=== PATIENT | male | born 1940 | race Caucasian/White ===

== ENCOUNTER → 2017-04-20 | Outpatient (CLI) | payer MEDICARE, BC ==
[2017-04-20 10:10] LABS: ALT 45 U/L (21-72); AST 22 U/L (17-59); Alkaline Phosphatase 44 U/L (38-126); Anion Gap 8 mmol/L; Blood Urea Nitrogen 18 mg/dL (9-20); Calcium 9.8 mg/dL (8.4-10.2); Carbon Dioxide 30 mmol/L (22-30); Chloride 101 mmol/L (98-107); Cholesterol 180 mg/dL (<200); Glucose 143 mg/dL (74-99); HDL Cholesterol 57 mg/dL (40-60); Non-African American GFR(MDRD) >60 (>60 ml/min/1.73 sqM); Potassium 5.1 mmol/L (3.5-5.1); Sodium 139 mmol/L (137-145); Total Bilirubin 0.5 mg/dL (0.2-1.3); Total Protein 6.8 g/dL (6.3-8.2); Triglycerides 80 mg/dL (<150)
[2017-04-20 16:12] LABS: Urine Creatinine 89.4 mg/dL
== END | disposition home or self-care (01) ==
LOC: LABWHC1 08:59
PROVIDERS: ATTEND Internal Medicine Endocrinology, Diabetes & Metabolism
DX: E11.65 Type 2 diabetes mellitus with hyperglycemia (principal)
CPT/HCPCS: 36415; 80053; 80061; 82043; 82570

== ENCOUNTER → 2018-01-16 | Outpatient (CLI) | payer MEDICARE, BC ==
[2018-01-16 09:10] LABS: ALT 54 U/L (21-72); AST 28 U/L (17-59); Albumin 4.3 g/dL (3.5-5.0); Alkaline Phosphatase 36 U/L (38-126); Anion Gap 13 mmol/L; Blood Urea Nitrogen 19 mg/dL (9-20); Carbon Dioxide 27 mmol/L (22-30); Chloride 99 mmol/L (98-107); Cholesterol 174 mg/dL (<200); Glucose 148 mg/dL (74-99); HDL Cholesterol 53 mg/dL (40-60); LDL Cholesterol,Calculated 104 mg/dL (0-99); Sodium 139 mmol/L (137-145); Total Bilirubin 0.6 mg/dL (0.2-1.3); Total Protein 6.9 g/dL (6.3-8.2); Triglycerides 86 mg/dL (<150)
[2018-01-16 18:41] LABS: Hemoglobin A1C 7.1 % (4.0-6.0)
== END | disposition home or self-care (01) ==
LOC: LABWHC1 07:52
PROVIDERS: ATTEND Internal Medicine Endocrinology, Diabetes & Metabolism
DX: E11.65 Type 2 diabetes mellitus with hyperglycemia (principal)
CPT/HCPCS: 36415; 80053; 80061; 82043; 82570; 83036

== ENCOUNTER → 2018-04-14 | Outpatient (CLI) | payer MEDICARE, BC ==
[2018-04-14 14:34] LABS: Anion Gap 11 mmol/L; Basophils % (A) 1 %; Blood Urea Nitrogen 17 mg/dL (9-20); Calcium 9.6 mg/dL (8.4-10.2); Carbon Dioxide 25 mmol/L (22-30); Chloride 102 mmol/L (98-107); Eosinophils # (A) 0.2 k/uL (0-0.7); Eosinophils % (A) 3 %; Glucose 149 mg/dL (74-99); HCT 43.3 % (39.0-53.0); HGB 14.7 gm/dL (13.0-17.5); Lymphocytes # (A) 1.4 k/uL (1.0-4.8); Lymphocytes % (A) 20 %; MCH 31.6 pg (25.0-35.0); MCHC 33.9 g/dL (31.0-37.0); MCV 93.3 fL (80.0-100.0); Mean Platelet Volume 7.4; Monocytes # (A) 0.5 k/uL (0-1.0); Monocytes % (A) 7 %; Neutrophils # (A) 4.9 k/uL (1.3-7.7); Neutrophils % (A) 68 %; Platelet Count 232 k/uL (150-450); Potassium 4.8 mmol/L (3.5-5.1); RBC 4.64 m/uL (4.30-5.90); RDW 12.7 % (11.5-15.5); Sodium 138 mmol/L (137-145); WBC 7.2 k/uL (3.8-10.6)
== END | disposition home or self-care (01) ==
LOC: LABPAT 13:48
PROVIDERS: ATTEND Urology
DX: Z01.812 Encounter for preprocedural laboratory examination (principal); N40.1 Benign prostatic hyperplasia with lower urinary tract symptoms; E11.9 Type 2 diabetes mellitus without complications; R35.0 Frequency of micturition; R31.29 Other microscopic hematuria
CPT/HCPCS: 36415; 80048; 85025; 87077; 87086; 87186

== ENCOUNTER 2018-04-20 06:59 | Day surgery (SDC) | payer MEDICARE, BC ==
[2018-04-14 11:37] VITALS: BMI 30.3
--- NOTE | 2018-04-16 08:44 | P.GSHP ---
History of Present Illness H&P Date: 04/16/18 Chief Complaint: Urinary retention The patient is a 77-year-old white male with known BPH. He previously failed treatment with Rapaflo. He has been found to empty his bladder incompletely. Cystoscopy reveals trilobar BPH. He was taught to perform intermittent self- catheterization but was unable to do so. He declines treatment with finasteride , and now comes for TURP. 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 PSORIASIS ELBOWS , KNEES. USES CPAP. BPH. History of Any Multi-Drug Resistant Organisms: None Reported Past Surgical History: Appendectomy, Cholecystectomy, Orthopedic Surgery, Tonsillectomy Additional Past Surgical History / Comment(s): LT RING FINGER CYST REMOVED. Past Anesthesia/Blood Transfusion Reactions: No Reported Reaction Smoking Status: Former smoker - Past Family History Mother Family Medical History: No Reported History Medications and Allergies Home Medications Medication Instructions Recorded Confirmed Type Glucosam/Chond/Hyalu/Cf Borate 1 each PO DAILY 04/14/18 04/14/18 History [Move Free Joint Health Tablet] Ibuprofen/Diphenhydramine HCl 1 each PO DAILY PRN 04/14/18 04/14/18 History [Advil Pm Liqui-Gels] Lisinopril [Zestril] 10 mg PO DAILY 04/14/18 04/14/18 History Multivitamins, Thera [Multivitamin 1 tab PO DAILY 04/14/18 04/14/18 History (formulary)] metFORMIN HCL 1,000 mg PO BID 04/14/18 04/14/18 History Allergies Allergy/AdvReac Type Severity Reaction Status Date / Time No Known Allergies Allergy Verified 04/14/18 11:11 Surgical - Exam - General well developed, well nourished, no distress - Neck no masses, trachea midline - Respiratory normal respiratory effort, clear to auscultation - Cardiovascular Rhythm: regular Abnormal Heart Sounds: no systolic murmur, no diastolic murmur, no rub, no S3 Gallop, no S4 Gallop, no click, no other - Abdomen Abdomen: soft, non tender, no guarding, no rigid, no rebound - Genitourinary normal penis with no external lesions, testicles non-tender - Rectum Prostate moderately enlarged and smooth Rectum: normal sphincter tone - Psychiatric oriented to time, oriented to person, oriented to place, speech is normal, memory intact Assessment and Plan (1) Enlarged prostate with lower urinary tract symptoms (LUTS) Status: Acute Code(s): N40.1 - BENIGN PROSTATIC HYPERPLASIA WITH LOWER URINARY TRACT SYMP SNOMED Code(s): 460800548 (2) Urinary retention with incomplete bladder emptying Status: Acute Code(s): R33.9 - RETENTION OF URINE, UNSPECIFIED SNOMED Code(s ): 161148806 Plan: The patient comes for a bipolar TURP. The procedure was reviewed in detail with the patient. Potential risks include anesthesia, bleeding, infection, persistent incomplete bladder emptying, erectile dysfunction, urinary incontinence, development of urethral stricture or vesical neck contracture, persistent lower urinary tract symptoms, and retrograde ejaculation. He also understands the possibility that the resected tissue will show evidence of malignancy, possibly requiring additional treatment.
[~2018-04-20 06:59] MED LIST: AMPICILLIN 2,000 MG in SODIUM CHLORIDE 0.9% 100 ML IVPB ONE; DEXAMETHASONE SOD PHOSPHATE 10 MG/ML 1 ML VIAL IV ONE; GENTAMICIN 120 MG in SODIUM CHLORIDE 0.9% 100 ML IVPB ONE; HYDROmorphone 0.5 MG/0.5 ML SYRINGE IVP PRN; LACTATED RINGERS 1,000 ML IV SCH; ONDANSETRON 4 MG/2 ML VIAL IVP ONE
[2018-04-20] MEDS ORDERED: LIDOCAINE 1% 20 ML VIAL (10MG/ML) FOR IV START INTRADERMA ONE (07:30)
[2018-04-20 07:52] LABS: Glucose,Whole Blood 155 mg/dL (75-99)
[2018-04-20] MEDS ORDERED: fentaNYL (PF) 50 MCG/ML 2 ML AMP ONE (09:02)
[2018-04-20] MEDS ORDERED: LIDOCAINE 1% INJ 10MG/ML (20 ML MDV) ONE (09:02)
[2018-04-20] MEDS ORDERED: NEOSTIGMINE 1 MG/ML 10 ML VIAL ONE (09:02)
[2018-04-20] MEDS ORDERED: VECURONIUM 10 MG VIAL IV ONE (09:02)
[2018-04-20] MEDS ORDERED: PROPOFOL 10 MG/ML 20 ML VIAL IV ONE (09:02)
[2018-04-20] MEDS ORDERED: MIDAZOLAM 2 MG/2 ML VIAL ONE (09:02)
[2018-04-20] MEDS ORDERED: PHENYLEPHRINE-0.9% NACL SYG 1 MG/10 ML SYRINGE ONE (09:02)
[2018-04-20] MEDS ORDERED: SUCCINYLCHOLINE CHLORIDE 100 MG/5 ML SYR IV ONE (09:02)
[2018-04-20] MEDS ORDERED: GLYCOPYRROLATE 0.2 MG/ML 2 ML VIAL ONE (09:02)
--- NOTE | 2018-04-20 12:01 | P.OP ---
Date of Procedure: 04/20/18 Preoperative Diagnosis: Urinary retention secondary to BPH Postoperative Diagnosis: Same Procedure(s) Performed: Cystoscopy, bipolar transurethral resection of prostate (TURP) Anesthesia: YUKO Surgeon: Beto Sequeira Estimated Blood Loss (ml): 100 IV fluids (ml): 600 Pathology: other (prostate chips) Condition: stable Disposition: PACU Indications for Procedure: The patient is a 77-year-old white male with known BPH. He previously failed treatment with Rapaflo. He has been found to empty his bladder incompletely. Cystoscopy reveals trilobar BPH. He was taught to perform intermittent self- catheterization but was unable to do so. He declines treatment with finasteride , and now comes for TURP. Operative Findings: Trilobar BPH Description of Procedure: The patient was taken in the operating room and placed in the dorsolithotomy position, The external genitalia was prepped and draped sterilely. The 25- Thai ACMI resectoscope sheath was introduced into the bladder. The bladder was inspected. Both ureteral orifices were of normal anatomic location and configuration, and clear urine effluxed from both. No tumors or foreign bodies were seen. Examination of the prostate revealed complete obstruction with a trilobar configuration. Using the bipolar cutting loop, the median lobe was resected. Next, each of the lateral lobes were resected down to the surgical capsule. The floor of the prostate was then resected, proximal to the verumontanum. Lastly, any remaining anterior tissue was resected. The prostatic fossa was then carefully examined. The remaining apical tissue was then carefully resected. The resection was carried down to the surgical capsule in all 4 quadrants. The prostatic fossa was then carefully examined, and any areas of bleeding were controlled with electrocautery. Excellent hemostasis was attained. The resectoscope was withdrawn into the bulbous urethra. The external urinary sphincter remained intact. The prostatic fossa was open. The [employer] evacuator was used to remove all prostate chips from the bladder. These were saved and sent for pathologic examination. The resectoscope was removed, and a 22 Thai, 3-Way Youngblood catheter was placed. The return was essentially clear, and the irrigation port was plugged. The patient tolerated the procedure well was taken to the recovery room in stable condition.
[2018-04-20] MEDS ORDERED: BELLADONNA-OPIUM 16.2-60 MG 1 EACH SUPP RECTAL PRN (12:44)
[2018-04-20] MEDS ORDERED: ACETAMINOPHEN TAB 325 MG TAB PO PRN (12:44)
[2018-04-20] MEDS ORDERED: HYDROcodone/APAP 5-325MG 1 EACH TAB PO PRN (12:46)
[2018-04-20 12:53] LABS: Glucose,Whole Blood 188 mg/dL (75-99)
[2018-04-20] MEDS: HYDROcodone/APAP 5-325MG 1 EACH TAB PO PRN ×2 (14:56→18:59)
[2018-04-20] MEDS: DEXTROSE 5%-0.45% NACL 1,000 ML IV SCH (14:57)
[2018-04-20] MEDS: metFORMIN 500 MG TAB PO SCH (17:19)
[2018-04-20] MEDS: SULFAMETHOX-TMP 800-160MG 1 EACH TAB PO SCH (18:58)
[2018-04-20] MEDS: DOCUSATE 100 MG CAP PO SCH (18:59)
[2018-04-20 20:02] LABS: Glucose,Whole Blood 220 mg/dL (75-99)
[2018-04-21] MEDS ORDERED: ceFAZolin IN SWFI 2 GM/20 ML SYRINGE IVP ONE
[2018-04-21] MEDS ORDERED: HYDROcodone/APAP 10-325MG 1 EACH TAB ONE
[2018-04-21] MEDS: DEXTROSE 5%-0.45% NACL 1,000 ML IV SCH (05:10)
[2018-04-21 05:20] VITALS: RESP 16
[2018-04-21 07:04] LABS: Glucose,Whole Blood 184 mg/dL (75-99)
--- NOTE | 2018-04-21 07:50 | P.DS ---
Providers Expected date of discharge: 04/21/18 Attending physician: Beto Sequeira Primary care physician: Blake Fischer - Discharge Diagnosis(es) (1) Enlarged prostate with lower urinary tract symptoms (LUTS) Current Visit: No Status: Acute (2) Urinary retention with incomplete bladder emptying Current Visit: No Status: Acute Hospital Course: On the day of admission, the patient underwent an uncomplicated bipolar TURP. His prostate was considerably enlarged, with a trilobar configuration. There was some evidence of hematuria postoperatively, so the decision was made to keep him hospitalized overnight. However, he did not require catheter irrigation, and on the morning following surgery the urine was clear. He was comfortable and discharged home. Procedures: Cystoscopy, TURP in 04/20/2018. Patient Condition at Discharge: Good Plan - Discharge Summary Discharge Rx Participant: Yes New Discharge Prescriptions: New Cephalexin [Keflex] 500 mg PO Q8HR #21 cap No Action Multivitamins, Thera [Multivitamin (formulary)] 1 tab PO DAILY Glucosam/Chond/Hyalu/Cf Borate [Move Free Joint Health Tablet] 1 each PO DAILY metFORMIN HCL 1,000 mg PO BID Lisinopril [Zestril] 10 mg PO DAILY Ibuprofen/Diphenhydramine HCl [Advil Pm Liqui-Gels] 1 each PO DAILY PRN PRN Reason: PAIN/INSOMNIA Sulfamethox-Tmp 800-160Mg [Bactrim DS 800-160 mg] 1 tab PO Q12HR Discharge Medication List Glucosam/Chond/Hyalu/Cf Borate [Move Free Joint Health Tablet] 1 each PO DAILY 04/14/18 [History] Ibuprofen/Diphenhydramine HCl [Advil Pm Liqui-Gels] 1 each PO DAILY PRN [History] Lisinopril [Zestril] 10 mg PO DAILY 04/14/18 [History] Multivitamins, Thera [Multivitamin (formulary)] 1 tab PO DAILY 04/14/18 [History ] metFORMIN HCL 1,000 mg PO BID 04/14/18 [History] Sulfamethox-Tmp 800-160Mg [Bactrim DS 800-160 mg] 1 tab PO Q12HR 04/19/18 [ History] Cephalexin [Keflex] 500 mg PO Q8HR #21 cap 04/21/18 [Rx] Follow up Appointment(s)/Referral(s): Beto Sequeira MD [STAFF PHYSICIAN] - 04/26/18 Activity/Diet/Wound Care/Special Instructions: Diet as tolerated. No strenuous activity. No straining. Okay to shower. Encourage oral fluids. Patient should discontinue taking Bactrim, and instead take Keflex as prescribed. Hold ibuprofen. Discharge Disposition: HOME SELF-CARE
[2018-04-21] MEDS: metFORMIN 500 MG TAB PO SCH (08:23)
[2018-04-21] MEDS: DOCUSATE 100 MG CAP PO SCH (08:23)
[2018-04-21] MEDS: SULFAMETHOX-TMP 800-160MG 1 EACH TAB PO SCH (08:24)
[2018-04-21 08:56] VITALS: BP 151/78; PULSE 72; TEMP 98.4
[2018-04-21] MEDS ORDERED: LISINOPRIL 10 MG TAB PO SCH (09:00)
== END 2018-04-21 11:42 | disposition home or self-care (01) ==
LOC: OR 06:59 → 3SUR 12:08 → OR 04-21 11:42
PROVIDERS: ATTEND Urology
DX: N40.1 Benign prostatic hyperplasia with lower urinary tract symptoms (principal); N13.8 Other obstructive and reflux uropathy; R33.8 Other retention of urine; I10 Essential (primary) hypertension; E11.9 Type 2 diabetes mellitus without complications; G47.30 Sleep apnea, unspecified; Z99.89 Dependence on other enabling machines and devices; L40.9 Psoriasis, unspecified; Z87.891 Personal history of nicotine dependence; Z79.84 Long term (current) use of oral hypoglycemic drugs; Z79.899 Other long term (current) drug therapy
CPT/HCPCS: 88305; 52601; J2250; J2710; J2001; J3010; J1580; J0290; J2370; J0330; J2704

== ENCOUNTER → 2018-05-01 | Outpatient (CLI) | payer MEDICARE, BC ==
[2018-05-01 11:16] LABS: Albumin 3.6 g/dL (3.5-5.0); Calcium 9.4 mg/dL (8.4-10.2); Potassium 4.5 mmol/L (3.5-5.1); Total Bilirubin 0.6 mg/dL (0.2-1.3); Total Protein 6.1 g/dL (6.3-8.2)
[2018-05-01 19:37] LABS: Hemoglobin A1C 7.7 % (4.0-6.0)
== END | disposition home or self-care (01) ==
LOC: LABWHC1 10:36
PROVIDERS: ATTEND Internal Medicine Endocrinology, Diabetes & Metabolism
DX: E11.65 Type 2 diabetes mellitus with hyperglycemia (principal)
CPT/HCPCS: 36415; 80053; 80061; 83036; 84443

== ENCOUNTER → 2018-08-21 | Outpatient (CLI) | payer MEDICARE, BC ==
[2018-08-21 16:15] LABS: LDL Cholesterol,Calculated 90.6 mg/dL (0.0-131.0); VLDL Calculation 14.4 mg/dL (5.00-40.00)
[2018-08-21 16:16] LABS: Albumin 4.4 g/dL (3.80-4.90); Albumin/Globulin Ratio 2.2 (1.20-2.10); Anion Gap 5.4 mmol/L (4.00-12.00); Calcium 9.5 mg/dL (8.7-10.3); Carbon Dioxide 28.6 mmol/L (21.6-31.8); Potassium 5.1 mmol/L (3.5-5.5); Total Bilirubin 0.4 mg/dL (0.2-1.2); Total Protein 6.4 g/dL (6.2-8.2)
[2018-08-21 21:46] LABS: Hemoglobin A1C 7.9 % (4.0-6.0)
== END | disposition home or self-care (01) ==
LOC: LABWHC1 10:29
PROVIDERS: ATTEND Internal Medicine Endocrinology, Diabetes & Metabolism
DX: E11.65 Type 2 diabetes mellitus with hyperglycemia (principal)
CPT/HCPCS: 36415; 80053; 80061; 82043; 82570; 83036

== ENCOUNTER → 2019-02-06 | Outpatient (CLI) | payer MEDICARE, BC ==
[2019-02-06 19:10] LABS: Albumin 4.4 g/dL (3.80-4.90); Albumin/Globulin Ratio 2.59 (1.60-3.17); Anion Gap 6.8 mmol/L (4.00-12.00); Calcium 9.7 mg/dL (8.7-10.3); Carbon Dioxide 28.2 mmol/L (21.6-31.8); Globulin 1.7 g/dL (1.6-3.3); Potassium 4.7 mmol/L (3.5-5.5); Total Bilirubin 0.6 mg/dL (0.3-1.2); Total Protein 6.1 g/dL (6.2-8.2)
[2019-02-06 19:39] LABS: Hemoglobin A1C 7.5 % (4.0-6.0)
== END | disposition home or self-care (01) ==
LOC: LABWHC1 10:18
PROVIDERS: ATTEND Internal Medicine Endocrinology, Diabetes & Metabolism
DX: E11.65 Type 2 diabetes mellitus with hyperglycemia (principal)
CPT/HCPCS: 36415; 80053; 80061; 82043; 82570; 83036

== ENCOUNTER → 2019-02-09 | Outpatient (CLI) | payer MEDICARE, BC ==
[~2019-02-09] MED LIST changes: -AMPICILLIN 2,000 MG in SODIUM CHLORIDE 0.9% 100 ML IVPB ONE; -DEXAMETHASONE SOD PHOSPHATE 10 MG/ML 1 ML VIAL IV ONE; -GENTAMICIN 120 MG in SODIUM CHLORIDE 0.9% 100 ML IVPB ONE; -HYDROmorphone 0.5 MG/0.5 ML SYRINGE IVP PRN; +IODINE/POTASS IOD (LUGOLS) 8 ML BTL TOPICAL ONE; -LACTATED RINGERS 1,000 ML IV SCH; -ONDANSETRON 4 MG/2 ML VIAL IVP ONE
--- NOTE | 2019-02-09 15:52 | NM ---
EXAMINATION TYPE: NM DatScan Brain SPECT DATE OF EXAM: 02/09/2019 COMPARISON: NONE HISTORY: Tremors TECHNIQUE: 10 drops of Lugol's solution was administered 1 hour prior to injection as a thyroid bloc heber agent. After the administration of 4.5 mCi I-123 Ioflupane DaTscan. Images obtained [address] injection. SPECT images of the brain were acquired with axial and coronal reconstructions. FINDINGS: The axial SPECT images demonstrate increased background activity and reduced activity withi n the bilateral striata. IMPRESSION: Abnormal appearance highly suggestive of idiopathic Parkinson's disease or Parkinsonian s yndrome.
== END | disposition home or self-care (01) ==
LOC: RADNMMAIN 10:23
PROVIDERS: ATTEND Psychiatry & Neurology Neurology
DX: R94.02 Abnormal brain scan (principal)
CPT/HCPCS: 78607; A9584

== ENCOUNTER 2019-07-13 08:30 | Observation (INO) | payer MEDICARE, BC ==
[2019-07-13] MEDS ORDERED: ASPIRIN 81 MG PO STA (08:50)
[2019-07-13] MEDS ORDERED: SODIUM CHLORIDE 0.9% 500 ML 500 ML IV STA (08:53)
[2019-07-13] MEDS ORDERED: SODIUM CHLORIDE 0.9% 1,000 ML IV STA (08:53)
--- NOTE | 2019-07-13 08:53 | ED ---
Chest Pain HPI - General Chief Complaint: Chest Pain Stated Complaint: Chest Pain, SOB Time Seen by Provider: 07/13/19 08:38 Source: patient Mode of arrival: ambulatory Limitations: no limitations - History of Present Illness Initial Comments: This is a 78-year-old male with no prior history of heart or lung disease who does have Parkinson's disease who presents today with complaints of about one week of progressively worsening shortness of breath and chest tightness. He states he is actually had this for about 6 months who used to be able walk 5 m joaquin a day now he can't do that he currently has no tightness in his chest with as how he describes the pain. At rest he feels okay but appears to occur with exertion. No cough fevers chills nausea vomiting sweats or other symptoms. He related to his Parkinson's disease but does not believe this is the case now. No peripheral edema no other modifying factors MD Complaint: chest pain, other - Related Data Home Medications Medication Instructions Recorded Confirmed Glucosam/Chond/Hyalu/Cf Borate 1 tab PO DAILY 04/14/18 07/13/19 [Move Free Joint Health Tablet] Lisinopril [Zestril] 10 mg PO DAILY 04/14/18 07/13/19 Multivitamins, Thera [Multivitamin 1 tab PO DAILY 04/14/18 07/13/19 (formulary)] metFORMIN HCL 1,000 mg PO BID 04/14/18 07/13/19 Aspirin EC [Ecotrin] 325 mg PO DAILY 07/13/19 07/13/19 Carbidopa-Levodopa 10-100 mg 1 tab PO TID 07/13/19 07/13/19 [Sinemet 10-100] Allergies Allergy/AdvReac Type Severity Reaction Status Date / Time No Known Allergies Allergy Verified 07/13/19 08:58 Review of Systems ROS Statement: Those systems with pertinent positive or pertinent negative responses have been documented in the HPI. ROS Other: All systems not noted in ROS Statement are negative. EKG Findings - EKG Results: EKG: interpreted by PETEY, sinus rhythm (Normal sinus rhythm rate 85. 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 PSORIASIS ELBOWS, KNEES. USES CPAP. BPH. History of Any Multi-Drug Resistant Organisms: None Reported Past Surgical History: Appendectomy, Cholecystectomy, Orthopedic Surgery, Tonsillectomy Additional Past Surgical History / Comment(s): LT RING FINGER CYST REMOVED. Past Anesthesia/Blood Transfusion Reactions: No Reported Reaction Past Psychological History: No Psychological Hx Reported Smoking Status: Former smoker Past Alcohol Use History: Occasional Past Drug Use History: None Reported - Past Family History Mother Family Medical History: No Reported History General Exam - General Exam Comments Initial Comments: This is a well-developed well-nourished awake alert oriented 3 male Limitations: no limitations General appearance: alert, in no apparent distress Head exam: Present: atraumatic, normocephalic, normal inspection Eye exam: Present: normal appearance, PERRL, EOMI. Absent: scleral icterus, conjunctival injection, periorbital swelling ENT exam: Present: normal exam, mucous membranes moist Neck exam: Present: normal inspection, full ROM, other (No stridor JVD or bruits). Absent: tenderness, meningismus, lymphadenopathy Respiratory exam: Present: normal lung sounds bilaterally. Absent: respiratory distress, wheezes, rales, rhonchi, stridor Cardiovascular Exam: Present: regular rate, normal rhythm, normal heart sounds. Absent: systolic murmur, diastolic murmur, rubs, gallop, clicks GI/Abdominal exam: Present: soft, normal bowel sounds. Absent: distended, tenderness, guarding, rebound, rigid Extremities exam: Present: normal inspection, full ROM, normal capillary refill. Absent: tenderness, pedal edema, joint swelling, calf tenderness Back exam: Present: normal inspection Neurological exam: Present: alert, oriented X3, CN II-XII intact Psychiatric exam: Present: normal affect, normal mood Skin exam: Present: warm, dry, intact, normal color. Absent: rash Course Vital Signs 07/13/19 07/13/19 08:32 10:57 Temperature 97.9 F Pulse Rate 88 66 Respiratory 20 16 Rate Blood Pressure 201/106 146/81 O2 Sat by Pulse 100 99 Oximetry Chest Pain MDM - MDM I did review the imaging and report no acute findings I did discuss findings with the patient with Dr. Fischer patient will be admitted for evaluation of chest pain. He did have also pain rating to his right jaw he stated later. Disposition Clinical Impression: Unstable angina pectoris, Chest pain Disposition: ADMITTED IP TO THIS HOSP Condition: Fair Referrals: Blake Fischer MD [Primary Care Provider] - 1-2 days
[2019-07-13 09:46] LABS: Basophils % (A) 1 %; Eosinophils # (A) 0.2 k/uL (0-0.7); Eosinophils % (A) 3 %; HCT 43.7 % (39.0-53.0); HGB 15.3 gm/dL (13.0-17.5); Lymphocytes # (A) 1.3 k/uL (1.0-4.8); Lymphocytes % (A) 18 %; MCH 33.2 pg (25.0-35.0); MCHC 35.1 g/dL (31.0-37.0); MCV 94.6 fL (80.0-100.0); Monocytes # (A) 0.4 k/uL (0-1.0); Monocytes % (A) 6 %; Neutrophils # (A) 4.9 k/uL (1.3-7.7); Neutrophils % (A) 70 %; Platelet Count 195 k/uL (150-450); RBC 4.61 m/uL (4.30-5.90); RDW 12.4 % (11.5-15.5)
--- NOTE | 2019-07-13 09:57 | XR ---
EXAMINATION TYPE: XR chest 2V DATE OF EXAM: 07/13/2019 COMPARISON: Chest x-ray February 23, 2010. HISTORY: Shortness of breath and chest pain. TECHNIQUE: Frontal and lateral views of the chest are obtained. FINDINGS: Overlying EKG leads are present. There is no focal air space opacity, pleural effusion, or pneumothorax seen. Stable partial visualization of rounded calcified lesion left upper quadrant maite elates with calcified splenic lesion. The cardiac silhouette size is within normal limits. The osse ous structures are intact. IMPRESSION: No acute cardiopulmonary process. No significant change from prior.
[2019-07-13 10:01] LABS: African American GFR (CKD) >90 (>60 ml/min/1.73 sqM); Albumin 4.4 g/dL (3.5-5.0); Anion Gap 13 mmol/L; Blood Urea Nitrogen 16 mg/dL (9-20); Calcium 9.8 mg/dL (8.4-10.2); Carbon Dioxide 22 mmol/L (22-30); Chloride 101 mmol/L (98-107); Creatine Kinase 56 U/L (55-170); Glucose 219 mg/dL (74-99); Magnesium 1.7 mg/dL (1.6-2.3); Sodium 136 mmol/L (137-145); Total Bilirubin 0.8 mg/dL (0.2-1.3); Total Protein 7.2 g/dL (6.3-8.2)
[2019-07-13 10:10] LABS: ALT 47 U/L (21-72); AST 41 U/L (17-59); Alkaline Phosphatase 35 U/L (38-126); Potassium 4.8 mmol/L (3.5-5.1)
[2019-07-13 11:13] LABS: Partial Thromboplastin Time 23.4 sec (22.0-30.0); Prothrombin Time 10.4 sec (9.0-12.0)
[2019-07-13 11:34] LABS: D-Dimer 0.48 mg/L FEU (<0.60)
[2019-07-13] MEDS ORDERED: NITROGLYCERIN SL TABS 0.4 MG TAB SUBLINGUAL PRN (12:19)
[2019-07-13] MEDS ORDERED: HEPARIN SODIUM,PORCINE 5,000 UNIT/ML 1 ML VIAL IV ONE (12:19)
[2019-07-13] MEDS ORDERED: HEPARIN SOD,PORK IN 0.45% NACL 25,000 UNIT in 0.45% NACL 1 250ML.BAG IV SCH (12:30)
[2019-07-13 14:03] VITALS: BMI 29.0
[2019-07-13] MEDS: CARBIDOPA-LEVODOPA 10-100 MG 1 EACH TAB PO SCH ×2 (16:09→19:31)
[2019-07-13 16:35] LABS: Glucose,Whole Blood 204 mg/dL (75-99)
[2019-07-13] MEDS: metFORMIN 500 MG TAB PO SCH (17:21)
--- NOTE | 2019-07-13 18:23 | P.CRDCN ---
History of Present Illness History of present illness: This is Dr. Cortez dictating a consult on this patient The patient was interviewed and examined by me IMPRESSION / ASSESSMENT: Exertional chest tightness with radiation to the jaw for the last 6 months Progressively getting worse Type 2 diabetes on metformin Hypertension, elevated blood pressure readings in the hospital Lipid panel elevated Parkinson's disease First 2 cardiac enzymes are normal and twelve-lead ECG does not show any ST segment abnormalities PLAN: Lipid panel, TSH Increase lisinopril to 10 mg twice daily Start metoprolol 25 mg twice daily and hold for a heart rate of less than 50 bpm Atorvastatin 40 g by mouth daily Lipid panel Switched to a baby aspirin, not a full aspirin I'll detailed discussion with the patient and I would recommend proceeding with coronary angiography directly The patient understands this and is willing to proceed Heparin will be stopped after 3 cardiac enzymes are normal Clear liquids for breakfast tomorrow HPI Patient presented with progressive symptoms of exertional chest discomfort and tightness that radiated to the jaw with average exertion Shortness of breath with average exertion Symptoms progressively getting worse for the last 6 months His has cancer and so he was taking care of her for all these months No dizziness palpitations no loss of consciousness ROS: No fever chills or rigors, no cough, phlegm or expectoration, no nausea, vomiting or diarrhea, no hematuria, dysuria, no musculoskeletal complaints, no strokes or seizures, no skin lesions. EXAMINATION: Blood pressure 137 of 79 and 178/95 mmHg pulse rate in the 60s afebrile 97.7F Normal respirations No current bruits no JVD Breath sounds are reduced bilaterally with no rhonchi no crackles Normal heart sounds no murmurs or gallops no rub Abdomen is soft nontender Extremities warm no edema REVIEW OF LABS, ECG & MEDICAL DATA hemoglobin 15.3, d-dimer normal him a normal electrolytes Elevated glucose 2 cardiac enzymes are normal Lipid panel pending Twelve-lead ECG shows sinus rhythm normal OK narrow QRS normal ST segments Chest x-ray is within normal limits Medications reviewed and documented in the chart NO KNOWN DRUG ALLERGIES Past history of Parkinson's disease, obstructive sleep apnea, polio as child of her psoriasis, patient uses CPAP mask History of appendectomy cholecystectomy tonsillectomy Past history of smoking Past Medical History Past Medical History: Diabetes Mellitus, Eye Disorder, Hypertension, Musculoskeletal Disorder, Osteoarthritis (OA), Prostate Disorder, Skin Disorder, Sleep Apnea/CPAP/BIPAP Additional Past Medical History / Comment(s): NIDDM type II, neuropathy bilateral feet, parkinson's disease, polio as 6 yr old child, BPH with surgery, psoriasis, psoriatic arthritis, arthritis in multiple joints, chronic low back pain, 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 History of Any Multi-Drug Resistant Organisms: None Reported Past Surgical History: Appendectomy, Cholecystectomy, Orthopedic Surgery, Tonsillectomy Additional Past Surgical History / Comment(s): R carpal tunnel release, L 4th finger cyst removed, bipolar TURP with cystocystoscopy, R eye laser surgery for retinal detachment/hole, colonoscopy Past Anesthesia/Blood Transfusion Reactions: No Reported Reaction Smoking Status: Former smoker - Past Family History Mother Family Medical History: Coronary Artery Disease (CAD), Myocardial Infarction (SD) Additional Family Medical History / Comment(s): Mother of a SD in her upper 70s. Father Family Medical History: Cancer Additional Family Medical History / Comment(s): Father of lymphoma at the age of 94 yrs. Medications and Allergies Home Medications Medication Instructions Recorded Confirmed Type Glucosam/Chond/Hyalu/Cf Borate 1 tab PO DAILY 04/14/18 07/13/19 History [Move Free Joint Health Tablet] Lisinopril [Zestril] 10 mg PO DAILY 04/14/18 07/13/19 History Multivitamins, Thera [Multivitamin 1 tab PO DAILY 04/14/18 07/13/19 History (formulary)] metFORMIN HCL 1,000 mg PO BID 04/14/18 07/13/19 History Aspirin EC [Ecotrin] 325 mg PO DAILY 07/13/19 07/13/19 History Carbidopa-Levodopa 10-100 mg 1 tab PO TID 07/13/19 07/13/19 History [Sinemet 10-100] Allergies Allergy/AdvReac Type Severity Reaction Status Date / Time No Known Allergies Allergy Verified 07/13/19 08:58 Physical Exam Vitals: Vital Signs Temp Pulse Pulse Resp BP BP Pulse Ox 07/13/19 16:00 68 16 07/13/19 14:11 68 16 07/13/19 13:50 97.7 F 68 16 178/95 100 07/13/19 13:06 98.0 F 07/13/19 12:56 62 20 137/79 98 07/13/19 12:32 75 18 140/79 99 07/13/19 10:57 66 16 146/81 99 07/13/19 08:32 97.9 F 88 20 201/106 100 Intake and Output 07/13/19 07/13/19 07/13/19 06:59 14:59 22:59 Intake Total 236 Balance 236 Intake: Oral 236 Other: Voiding Method Toilet Toilet Weight 99.79 kg Results 07/13/19 09:25 07/13/19 09:25 Cardiac Enzymes 07/13/19 07/13/19 07/13/19 Range/Units 09:25 09:25 14:19 AST 41 (17-59) U/L Troponin I <0.012 <0.012 (0.000-0.034) ng/mL Coagulation 07/13/19 Range/Units 09:40 PT 10.4 (9.0-12.0) sec APTT 23.4 (22.0-30.0) sec CBC 07/13/19 Range/Units 09:25 WBC 7.0 (3.8-10.6) k/uL RBC 4.61 (4.30-5.90) m/uL Hgb 15.3 (13.0-17.5) gm/dL Hct 43.7 (39.0-53.0) % Plt Count 195 (150-450) k/uL Comprehensive Metabolic Panel 07/13/19 Range/Units 09:25 Sodium 136 L (137-145) mmol/L Potassium 4.8 (3.5-5.1) mmol/L Chloride 101 (98-107) mmol/L Carbon Dioxide 22 (22-30) mmol/L BUN 16 (9-20) mg/dL Creatinine 0.88 (0.66-1.25) mg/dL Glucose 219 H (74-99) mg/dL Calcium 9.8 (8.4-10.2) mg/dL AST 41 (17-59) U/L ALT 47 (21-72) U/L Alkaline Phosphatase 35 L (38-126) U/L Total Protein 7.2 (6.3-8.2) g/dL Albumin 4.4 (3.5-5.0) g/dL Current Medications Generic Name Dose Route Start Last Admin Trade Name Freq PRN Reason Stop Dose Admin Aspirin 81 mg 07/14/19 09:00 Aspirin PO DAILY COUNT INCLUDES THE [facility] Atorvastatin Calcium 40 mg 07/13/19 21:00 Lipitor PO HS COUNT INCLUDES THE [facility] Carbidopa/Levodopa 1 each 07/13/19 16:00 07/13/19 16:09 Sinemet 10-100 PO 1 each TID SLIME Administration Sodium Chloride 1,000 mls @ 75 mls/hr 07/13/19 08:53 07/13/19 09:02 Saline 0.9% IV 07/13/19 22:12 75 mls/hr .[id number] STA Administration Heparin Sodium/Sodium Chloride 250 mls @ 9.979 mls/hr 07/13/19 12:30 07/13/19 12:55 25,000 unit/ Sodium Chloride IV 10 units/kg/hr .Q24H SLIME 9.979 mls/hr Administration Protocol 10 UNITS/KG/HR Lisinopril 10 mg 07/13/19 21:00 Zestril PO BID COUNT INCLUDES THE [facility] Metformin HCl 1,000 mg 07/13/19 17:30 07/13/19 17:21 Glucophage PO 1,000 mg BID-W/MEALS COUNT INCLUDES THE [facility] Administration Metoprolol Tartrate 25 mg 07/13/19 21:00 Lopressor PO BID COUNT INCLUDES THE [facility] Multivitamins 1 each 07/14/19 09:00 Theragran PO DAILY COUNT INCLUDES THE [facility] Nitroglycerin 0.4 mg 07/13/19 12:19 Nitrostat SUBLINGUAL Q5M PRN Chest Pain Intake and Output 07/13/19 07/13/19 07/13/19 06:59 14:59 22:59 Intake Total 236 Balance 236 Intake: Oral 236 Other: Voiding Method Toilet Toilet Weight 99.79 kg Patient Weight 07/14/19 06:59 Weight 99.79 kg 07/13/19 09:25 07/13/19 09:25
[2019-07-13] MEDS: METOPROLOL TARTRATE 25 MG TAB PO SCH (19:32)
[2019-07-13] MEDS: LISINOPRIL 10 MG TAB PO SCH (19:32)
[2019-07-13 19:50] LABS: Glucose,Whole Blood 119 mg/dL (75-99)
[2019-07-13] MEDS ORDERED: ATORVASTATIN 40 MG TAB PO SCH (21:00)
[2019-07-13] MEDS: MELATONIN 5 MG TABLET PO SCH (23:00)
[2019-07-14 06:33] LABS: Glucose,Whole Blood 163 mg/dL (75-99)
[2019-07-14] MEDS ORDERED: ALPRAZolam 0.5 MG TAB PO PRN (07:15)
[2019-07-14] MEDS ORDERED: ATORVASTATIN 80 MG TAB PO STA (07:15)
[2019-07-14] MEDS ORDERED: NITROGLYCERIN SL TABS 0.4 MG TAB SUBLINGUAL PRN (07:15)
[2019-07-14] MEDS ORDERED: ALPRAZolam 0.25 MG TAB PO PRN (07:15)
[2019-07-14] MEDS ORDERED: ASPIRIN 325 MG TAB PO STA (07:15)
[2019-07-14] MEDS ORDERED: SODIUM CHLORIDE 0.9% 1,000 ML in EMPTY BAG 1 BAG IV ONE (07:15)
--- NOTE | 2019-07-14 07:18 | P.PN ---
Progress Note - Text Progress Note Date: 07/14/19 This is a pleasant 78-year-old gentleman with a past medical history significant for diabetes type 2, hypertension, and dyslipidemia, presented to the hospital with a chest discomfort and subsequently he was admitted to the observational unit. The patient symptoms of chest discomfort are only exertional and concerning for angina and severe underlying coronary artery disease. The patient was seen yesterday by Dr. Cortez who recommended proceeding with a coronary angiogram. On follow-up with him today, he is asymptomatic. The plan is to proceed with coronary angiogram later on today. The procedure in details was explained to the patient.
[2019-07-14] MEDS: LISINOPRIL 10 MG TAB PO SCH ×2 (07:34→20:33)
[2019-07-14] MEDS: MULTIVITAMINS, THERA 1 EACH TAB PO SCH (07:34)
[2019-07-14] MEDS: CARBIDOPA-LEVODOPA 10-100 MG 1 EACH TAB PO SCH ×3 (07:35→20:32)
[2019-07-14] MEDS: METOPROLOL TARTRATE 25 MG TAB PO SCH ×2 (07:35→20:33)
[2019-07-14] MEDS: metFORMIN 500 MG TAB PO SCH (07:35)
[2019-07-14] MEDS ORDERED: LISINOPRIL 10 MG TAB PO SCH (09:00)
[2019-07-14] MEDS ORDERED: ASPIRIN 325 MG TAB PO SCH (09:00)
[2019-07-14] MEDS ORDERED: [UNRECOGNIZED DRUG - REMARK] PO SCH (09:00)
[2019-07-14] MEDS ORDERED: ASPIRIN 81 MG PO SCH (09:00)
[2019-07-14] MEDS ORDERED: NON FORMULARY DRUG (Aspirin Ec 325 MG) PO SCH (09:00)
[2019-07-14] MEDS ORDERED: LIDOCAINE 1% INJ 10MG/ML (20 ML MDV) ONE (09:53)
[2019-07-14] MEDS ORDERED: HEPARIN SODIUM 1,000 UN/ML (10ML VL) ONE (09:54)
[2019-07-14] MEDS ORDERED: VERAPAMIL 2.5 MG/ML 2 ML AMP ONE (09:54)
[2019-07-14] MEDS ORDERED: IV FLUID CONTINUATION 1,000 ML IV ONE (10:09)
[2019-07-14] MEDS ORDERED: MIDAZOLAM 2 MG/2 ML VIAL IVP ONE (10:19)
[2019-07-14] MEDS ORDERED: LIDOCAINE 1% INJ 10MG/ML (20 ML MDV) SQ ONE (10:19)
[2019-07-14] MEDS ORDERED: VERAPAMIL SYRINGE (5 MG/10 ML) INTRAARTER ONE ×2 (10:22→10:38)
[2019-07-14] MEDS ORDERED: HEPARIN SODIUM 1,000 UN/ML (10ML VL) IV ONE (10:25)
[2019-07-14] MEDS ORDERED: IOPAMIDOL-370 125ML BTL INJ ONE (10:38)
[2019-07-14] MEDS ORDERED: RX INFO: IV CONTRAST WAS GIVEN 1 EACH MISC MISCELLANE PRN (10:43)
[2019-07-14] MEDS ORDERED: SODIUM CHLORIDE 0.9% 1,000 ML IV SCH (10:45)
--- NOTE | 2019-07-14 10:48 | P.PCN ---
Date of Procedure: 07/14/19 Operative Findings: CARDIAC CATHETERIZATION PERFORMING PHYSICIAN: Ihsan Spears MD, RPVI PROCEDURE PERFORMED: 1. Selective right and left coronary angiogram 2. Left heart catheterization INDICATION: This is a pleasant 78-year-old gentleman was diabetes, hypertension, dyslipidemia, who presented to the hospital with chest discomfort. His symptoms were quite concerning for severe underlying coronary artery disease. Because of that a heart catheterization was advised. COMPLICATION: None APPROACH: Right radial artery LEVEL OF SEDATION: Moderate with a sedation makes of 20 minutes PROCEDURE DESCRIPTION: After obtaining an informed consent, the patient was brought to cardiac labor operator. Local anesthesia was performed using lidocaine subcutaneously. The right radial artery was cannulated using Seldinger technique, the guidewire passed easily, following that we advanced a 5-Ivorian sheath dilator assembly, the wire and dilator were removed and sheath was flushed. Following that, 2 mg of verapamil along with 32968 unit heparin were given. Selective right and left coronary angiogram using a 6-Ivorian JR4 and JL 3.5 catheters. Following that we did left heart catheterization using 6-Ivorian pigtail catheter. The procedure was completed there was no complication. SELECTIVE CORONARY ANGIOGRAM: The right coronary artery: Is a large caliber vessel and a dominant vessel. The proximal RCA has intermediate lesion in the range of 50%. The mid and distal RCA appears to be angiographically normal. Left main: It is angiographically normal. Bifurcates into LCx and LAD. The left circumflex: Is a large caliber vessel and nondominant vessel. The proximal LCx appeared to be angiographically normal. The mid circumflex is angiographically normal and gives rises into the first obtuse marginal branch which is a large caliber vessel and has disease appears to be in the range of 50-60%. The left circumflex distally appears to be angiographically normal. The left anterior descending artery: It is a large caliber vessel. The proximal LAD appeared to be angiographically normal. The mid LAD appears to be angiographically normal. The LAD distally seems to be normal as well. The LAD in the proximal portion gives rises into a large diagonal branch which has intermediate lesion appeared to be in the range of 50-60%. HEMODYNAMICS: The LVEDP was 12 mmHg without significant gradient across aortic valve CONCLUSION: #1 intermediate triple-vessel coronary artery disease involving the proximal RCA, first obtuse marginal branch, and first diagonal. #2 normal left ventricular end-diastolic pressure POSTPROCEDURE MANAGEMENT: Maximize medical treatment Follow-up with the patient
[2019-07-14 11:27] LABS: Glucose,Whole Blood 188 mg/dL (75-99)
--- NOTE | 2019-07-14 12:55 | P.HPIM ---
History of Present Illness H&P Date: 07/14/19 Chief Complaint: Chest pain with difficulty in breathing Mr. Alicia is a 78-year-old female with a past medical history of diabetes mellitus, hypertension, osteoarthritis, prostate disorder, sleep apnea, Parkinson's disease coming into the hospital with a chief complaint of chest tightness with mild difficulty in breathing. Patient states that he has been having chest discomfort and tightness that is exertional in nature for the past 6 months on and off. But for the past few days it worsen and the pain was radiating to the jaw with mild exertion. Patient was also having mild difficulty in breathing. He neglected all these symptoms for the past 6 months as he was taking care of his who had a cancer. Patient denied having any palpitations. No dizziness or loss of consciousness. Patient has risk factors for coronary artery disease including hypertension and diabetes. Patient has history of smoking smoked from 1949 and quit in 1963. Not a current smoker. Patient denies having any lower extremity swelling. No orthopnea or PND. Patient denies having any cough. No fever chills or rigors. No abdominal pain nausea vomiting or diarrhea. No dysuria or hematuria. Patient denies having any headaches blurring of vision or slurred speech. No weakness of his extremities. On reviewing the labs patient had troponin that was less than 0.012. He was evaluated by cardiology yesterday and patient had a left heart catheterization done this morning- showing intermediate triple vessel coronary artery disease involving the proximal RCA, first up to use marginal branch and first diagonal branch. Left ventricle end-diastolic pressure within normal li mits. So the patient is to be managed with medical treatment. Review of Systems REVIEW OF SYSTEMS: PSYCH: No anxiety or depression NEURO:No c/o weakness of the extremties, No facial droop, No speech abnormalities. VASCULAR: Peripheral nervous system within the normal limits no edema HEMATOLOGIC: No history of easy bleeding and bruising . No recent infections . RESPIRATORY: No cough, No SOB, No chest discomfort. IMMUNE: No infections INTEGUMENT: no rashes OPHTHALMOLOGIC: No blurry vision and no eye discharge : No dysuria or hematuria CARDIAC: As per HPI MUSCULOSKELETAL : No Aches or pains in the joints or muscles. GI: No abdominal pain, Nausea or vomiting. No constipation or diarrhea. All 13 review of systems are negative except for the ones mentioned above. 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 History of Any Multi-Drug Resistant Organisms: None Reported Past Surgical History: Appendectomy, Cholecystectomy, Orthopedic Surgery, Tonsillectomy Additional Past Surgical History / Comment(s): R carpal tunnel release, L 4th finger cyst removed, bipolar TURP with cystocystoscopy, R eye laser surgery for retinal detachment/hole, colonoscopy Past Anesthesia/Blood Transfusion Reactions: No Reported Reaction Smoking Status: Former smoker - Past Family History Mother Family Medical History: Coronary Artery Disease (CAD), Myocardial Infarction (OK) Additional Family Medical History / Comment(s): Mother of a OK in her upper 70s. Father Family Medical History: Cancer Additional Family Medical History / Comment(s): Father of lymphoma at the age of 94 yrs. Medications and Allergies Home Medications Medication Instructions Recorded Confirmed Type Glucosam/Chond/Hyalu/Cf Borate 1 tab PO DAILY 04/14/18 07/13/19 History [Move Free Joint Health Tablet] Lisinopril [Zestril] 10 mg PO DAILY 04/14/18 07/13/19 History Multivitamins, Thera [Multivitamin 1 tab PO DAILY 04/14/18 07/13/19 History (formulary)] metFORMIN HCL 1,000 mg PO BID 04/14/18 07/13/19 History Aspirin EC [Ecotrin] 325 mg PO DAILY 07/13/19 07/13/19 History Carbidopa-Levodopa 10-100 mg 1 tab PO TID 07/13/19 07/13/19 History [Sinemet 10-100] Allergies Allergy/AdvReac Type Severity Reaction Status Date / Time No Known Allergies Allergy Verified 07/13/19 08:58 Physical Exam Vitals: Vital Signs Temp Pulse Pulse Resp BP BP Pulse Ox 07/14/19 08:00 77 14 07/14/19 07:32 97.6 F 77 14 154/83 97 07/14/19 07:09 97 07/14/19 04:30 64 16 07/14/19 04:00 97.9 F 64 16 131/80 97 07/13/19 23:26 62 15 07/13/19 23:25 97.9 F 62 15 133/80 97 07/13/19 19:54 75 15 07/13/19 19:31 97.9 F 75 15 148/74 98 07/13/19 16:00 68 16 07/13/19 14:11 68 16 07/13/19 13:50 97.7 F 68 16 178/95 100 07/13/19 13:06 98.0 F 07/13/19 12:56 62 20 137/79 98 07/13/19 12:32 75 18 140/79 99 Intake and Output 07/13/19 07/14/19 07/14/19 22:59 06:59 14:59 Intake Total 326.643 0 340 Balance 326.643 0 340 Intake: Intake, IV Titration 90.643 Amount Heparin Sod,Pork in 0.45% 90.643 NaCl 25,000 unit In 0.45 % NaCl 1 250ml.bag @ 10 UNITS/KG/HR 9.979 mls/hr IV .Q24H SLIME Rx#: [id number] Oral 236 0 340 Other: Voiding Method Toilet Toilet Toilet # Voids 1 1 GEN. APPEARANCE: alert, in no apparent distress HEAD EXAM: atraumatic, normocephalic, normal inspection EYE EXAM: No pallor. No icterus. RESPIRATORY EXAM: Bilateral breath sounds are positive. No wheeze or crackles. CARDIOVASCULAR EXAM: S1 and S2 heard. No additional sounds. GI/ABDOMINAL EXAM: soft, normal bowel sounds. Absent: distended, tenderness, guarding, rebound, rigid EXTREMITIES EXAM: No edema. NEUROLOGICAL EXAM: alert, oriented X3, no focal neurological deficits on gross exam. PSYCHIATRIC EXAM: normal affect, normal mood SKIN EXAM: warm, dry, intact, normal color. Absent: rash Results CBC & Chem 7: 07/13/19 09:25 07/13/19 09:25 Labs: Abnormal Lab Results - Last 24 Hours (Table) 07/13/19 07/13/19 07/13/19 Range/Units 16:33 19:49 20:13 APTT 30.1 H (22.0-30.0) sec POC Glucose (mg/dL) 204 H 119 H (75-99) mg/dL HDL Cholesterol (40-60) mg/dL 07/14/19 07/14/19 07/14/19 Range/Units 03:32 03:32 06:31 APTT 42.6 H (22.0-30.0) sec POC Glucose (mg/dL) 163 H (75-99) mg/dL HDL Cholesterol 36 L (40-60) mg/dL 07/14/19 Range/Units 11:25 APTT (22.0-30.0) sec POC Glucose (mg/dL) 188 H (75-99) mg/dL HDL Cholesterol (40-60) mg/dL Thrombosis Risk Factor Assmnt - Choose All That Apply Any of the Below Risk Factors Present?: Yes Each Factor Represents 1 point: Obesity (BMI >25) Other Risk Factors: Yes Each Risk Factor Represents 3 Points: Age 75 years or older Other congenital or acquired thrombophilia - If yes, enter type in comment: No Thrombosis Risk Factor Assessment Total Risk Factor Score: 4 Thrombosis Risk Factor Assessment Level: Moderate Risk Assessment and Plan Assessment: ASSESSMENT Exertional chest pain Type 2 diabetes mellitus Hypertension Hyperlipidemia Parkinson's disease Prostrated disorder Obstructive sleep apnea on CPAP Psoriatic arthritis in multiple joints Chronic low back pain PLAN: Patient had a cardiac cath done this morning showing intermittent triple v essel disease. No stents were put in. Suggested to maximize medical management. Patient has been started on beta rich and Imdur. His dose of lisinopril has also been increased from 10 mg to 20 mg. Patient is also started on aspirin and statin. The results of the cardiac cath were discussed in detail with the patient and his son at bedside today. Further recommendations depending on the progress of the patient.
[2019-07-14 16:30] LABS: Glucose,Whole Blood 139 mg/dL (75-99)
[2019-07-14] MEDS: MELATONIN 5 MG TABLET PO SCH (20:33)
[2019-07-14 20:34] LABS: Glucose,Whole Blood 139 mg/dL (75-99)
[2019-07-15 06:17] LABS: Glucose,Whole Blood 155 mg/dL (75-99)
[2019-07-15] MEDS: LISINOPRIL 10 MG TAB PO SCH ×2 (08:52→14:54)
[2019-07-15] MEDS: MULTIVITAMINS, THERA 1 EACH TAB PO SCH (08:52)
[2019-07-15] MEDS: CARBIDOPA-LEVODOPA 10-100 MG 1 EACH TAB PO SCH (08:52)
[2019-07-15] MEDS: METOPROLOL TARTRATE 25 MG TAB PO SCH ×2 (08:52→14:54)
[2019-07-15] MEDS ORDERED: ASPIRIN 81 MG PO SCH (09:00)
[2019-07-15] MEDS ORDERED: ISOSORBIDE MONONITRATE ER 30 MG TAB.ER.24H PO SCH (09:00)
--- NOTE | 2019-07-15 10:32 | P.PN ---
Subjective Progress Note Date: 07/15/19 Principal diagnosis: Chest pain This is a pleasant 78-year-old gentleman with history of diabetes, hypertension, dyslipidemia, presented to the hospital with chest discomfort with exertion concerning for severe underlying coronary artery disease. He underwent a heart catheterization which revealed intermedius triple-vessel coronary artery disease. Maximize medical treatment was advised. We added oral nitrates to his current medical regimen. On follow-up with him today, 07/15/2019, the patient stated that he has been chest pain-free. The right radial artery site is soft and nontender and without any bruises. From the cardiovascular standpoint of view, the patient can be discharged home. Objective - Vital Signs Vital signs: Vital Signs Temp 97 F L 07/15/19 04:00 Pulse 60 07/15/19 04:00 Resp 16 07/15/19 04:00 BP 150/72 07/15/19 04:00 Pulse Ox 96 07/15/19 04:00 Intake & Output 07/14/19 07/15/19 07/15/19 18:59 06:59 18:59 Intake Total 340 420 750 Balance 340 420 750 Weight 100.1 kg Intake: Oral 340 420 750 Other: Voiding Method Toilet # Voids 2 - Constitutional General appearance: Present: no acute distress - Respiratory Respiratory: bilateral: CTA - Cardiovascular Rhythm: regular Heart sounds: normal: S1, S2 - Labs CBC & Chem 7: 07/13/19 09:25 07/13/19 09:25 Labs: Abnormal Lab Results - Last 24 Hours (Table) 07/14/19 07/14/19 07/14/19 Range/Units 11:25 16:28 20:31 POC Glucose (mg/dL) 188 H 139 H 139 H (75-99) mg/dL 07/15/19 Range/Units 06:16 POC Glucose (mg/dL) 155 H (75-99) mg/dL Assessment and Plan Assessment: Assessment #1 intermedius triple-vessel CAD #2 chest discomfort which has resolved #3 hypertension #4 diabetes next #5 dyslipidemia Plan #1 continue the current medical regimen #2 continue oral nitrate He #3 the patient can be discharged home
[2019-07-15 10:49] VITALS: PULSE 66; RESP 18
[2019-07-15 11:52] LABS: Glucose,Whole Blood 213 mg/dL (75-99)
[2019-07-15 13:06] VITALS: BP 149/73; TEMP 97.4
--- NOTE | 2019-07-15 14:36 | P.DS ---
Providers Date of admission: 07/13/19 12:19 Expected date of discharge: 07/15/19 Attending physician: Blake Fischer Consults: 07/13/19 12:19 Consult Physician Urgent Consulting Provider: Nicol Osborne Consult Reason/Comments: Chest pain Do you want consulting provider notified?: Yes Primary care physician: Blake Fischer [facility] Course: Mr. Alicia is a 78-year-old female with a past medical history of diabetes mellitus, hypertension, osteoarthritis, prostate disorder, sleep apnea, Parkinson's disease coming into the hospital with a chief complaint of chest tightness with mild difficulty in breathing. Patient states that he has been having chest discomfort and tightness that is exertional in nature for the past 6 months on and off. But for the past few days it worsen and the pain was radiating to the jaw with mild exertion. Patient was also having mild difficulty in breathing. He neglected all these symptoms for the past 6 months as he was taking care of his who had a cancer. Patient denied having any palpitations. No dizziness or loss of consciousness. Patient has risk factors for coronary artery disease including hypertension and diabetes. Patient has history of smoking smoked from 1949 and quit in 1963. Not a current smoker. Patient denies having any lower extremity swelling. No orthopnea or PND. Patient denies having any cough. No fever chills or rigors. No abdominal pain nausea vomiting or diarrhea. No dysuria or hematuria. Patient denies having any headaches blurring of vision or slurred speech. No weakness of his extremities. On reviewing the labs patient had troponin that was less than 0.012. He was evaluated by cardiology and patient had a left heart catheterization done - showing intermediate triple vessel coronary artery disease involving the proximal RCA, first up to use marginal branch and first diagonal branch. Left ventricle end-diastolic pressure within normal limits. So the patient is to be managed with medical treatment. So the patient has been started on beta rich, statin, and her and the dose of lisinopril was increased to twice a day dose. The patient was monitored for 24 hours after having the cardiac cath and was doing fine. He has been cleared by cardiology to be discharged home. She'll the patient is being sent home. He started to have a follow-up with his primary care physician Dr. Fischer in 3-4 days. Vital Signs 07/15/19 07/15/19 08:35 11:50 Temperature 97.6 F 97.4 F L Pulse Rate [ 66 66 Pulse Oximetery ] Respiratory 18 18 Rate Blood Pressure 162/96 149/73 [Left Arm Sitting] Blood Pressure 190/106 [Left Arm] O2 Sat by Pulse 96 96 Oximetry GEN. APPEARANCE: alert, in no apparent distress HEAD EXAM: atraumatic, normocephalic, normal inspection EYE EXAM: No pallor. No icterus. RESPIRATORY EXAM: Bilateral breath sounds are positive. No wheeze or crackles. CARDIOVASCULAR EXAM: S1 and S2 heard. No additional sounds. GI/ABDOMINAL EXAM: soft, normal bowel sounds. Absent: distended, tenderness, guarding, rebound, rigid EXTREMITIES EXAM: No edema. NEUROLOGICAL EXAM: alert, oriented X3, no focal neurological deficits on gross exam. PSYCHIATRIC EXAM: normal affect, normal mood SKIN EXAM: warm, dry, intact, normal color. Absent: rash DISCHARGE DIAGNOSIS Exertional chest pain Type 2 diabetes mellitus Hypertension Hyperlipidemia Parkinson's disease Prostrated disorder Obstructive sleep apnea on CPAP Psoriatic arthritis in multiple joints Chronic low back pain PLAN : Patient had a cardiac cath done showing intermittent triple vessel disease. No stents were put in. Suggested to maximize medical management. Patient has been started on beta rich and Imdur. His dose of lisinopril has also been increased from 10 mg to 20 mg. Patient is also started on statin. Discussed in detail the discharge medications with the patient and his son in detail today. Follow-up: Advised to follow-up with his primary care physician Dr. Fischer in 3- 4 days. Patient Condition at Discharge: Fair Plan - Discharge Summary Discharge Rx Participant: No New Discharge Prescriptions: New Isosorbide Mononitrate ER [Imdur] 30 mg PO DAILY 30 Days tab.er.24h Atorvastatin [Lipitor] 40 mg PO HS 30 Days #30 tab Metoprolol Tartrate [Lopressor] 25 mg PO BID 30 Days tab Nitroglycerin Sl Tabs [Nitrostat] 0.4 mg SUBLINGUAL Q5M PRN #20 tab PRN Reason: Chest Pain Lisinopril [Zestril] 10 mg PO BID 30 Days tab Continue Multivitamins, Thera [Multivitamin (formulary)] 1 tab PO DAILY Glucosam/Chond/Hyalu/Cf Borate [Move Free Joint Health Tablet] 1 tab PO DAILY metFORMIN HCL 1,000 mg PO BID Aspirin EC [Ecotrin] 325 mg PO DAILY Carbidopa-Levodopa 10-100 mg [Sinemet 10-100 mg] 1 tab PO TID Discontinued Lisinopril [Zestril] 10 mg PO DAILY Discharge Medication List Glucosam/Chond/Hyalu/Cf Borate [Move Free Joint Health Tablet] 1 tab PO DAILY 04/14/18 [History] Multivitamins, Thera [Multivitamin (formulary)] 1 tab PO DAILY 04/14/18 [History] metFORMIN HCL 1,000 mg PO BID 04/14/18 [History] Aspirin EC [Ecotrin] 325 mg PO DAILY 07/13/19 [History] Carbidopa-Levodopa 10-100 mg [Sinemet 10-100 mg] 1 tab PO TID 07/13/19 [History] Atorvastatin [Lipitor] 40 mg PO HS 30 Days #30 tab 07/15/19 [Rx] Isosorbide Mononitrate ER [Imdur] 30 mg PO DAILY 30 Days tab.er.24h 07/15/19 [Rx] Lisinopril [Zestril] 10 mg PO BID 30 Days tab 07/15/19 [Rx] Metoprolol Tartrate [Lopressor] 25 mg PO BID 30 Days tab 07/15/19 [Rx] Nitroglycerin Sl Tabs [Nitrostat] 0.4 mg SUBLINGUAL Q5M PRN #20 tab 07/15/19 [Rx] Follow up Appointment(s)/Referral(s): Jin Cortez MD [STAFF PHYSICIAN] - 1 Week Blake Fischer MD [Primary Care Provider] - 1-2 days Discharge Disposition: HOME SELF-CARE
[2019-07-15] MEDS ORDERED: ATORVASTATIN 40 MG TAB PO SCH (21:00)
[2019-07-16] MEDS ORDERED: metFORMIN 500 MG TAB PO SCH (17:30)
== END 2019-07-15 15:09 | disposition home or self-care (01) ==
LOC: EC 08:30 → 1SOBS 12:19 → 3SCARD 07-14 17:18
PROVIDERS: ADMIT Family Medicine; ATTEND Family Medicine
DX: R07.89 Other chest pain (principal); I25.10 Atherosclerotic heart disease of native coronary artery without angina pectoris; G20 Parkinson's disease; E78.5 Hyperlipidemia, unspecified; E11.65 Type 2 diabetes mellitus with hyperglycemia; I10 Essential (primary) hypertension; E11.42 Type 2 diabetes mellitus with diabetic polyneuropathy; G47.33 Obstructive sleep apnea (adult) (pediatric); N40.0 Benign prostatic hyperplasia without lower urinary tract symptoms; L40.50 Arthropathic psoriasis, unspecified; G89.29 Other chronic pain; M54.5 Low back pain; L40.9 Psoriasis, unspecified; D73.9 Disease of spleen, unspecified; R74.8 Abnormal levels of other serum enzymes; M19.90 Unspecified osteoarthritis, unspecified site; E66.9 Obesity, unspecified; Z68.29 Body mass index [BMI] 29.0-29.9, adult; Z79.82 Long term (current) use of aspirin; Z79.84 Long term (current) use of oral hypoglycemic drugs; Z79.899 Other long term (current) drug therapy; Z99.89 Dependence on other enabling machines and devices; Z86.12 Personal history of poliomyelitis; Z90.79 Acquired absence of other genital organ(s); Z90.49 Acquired absence of other specified parts of digestive tract; Z87.891 Personal history of nicotine dependence; Z86.69 Personal history of other diseases of the nervous system and sense organs; Z82.49 Family history of ischemic heart disease and other diseases of the circulatory system; Z80.7 Family history of other malignant neoplasms of lymphoid, hematopoietic and related tissues
CPT/HCPCS: 99152; 96366; 96376; 96361; 96365; 99285; 36415; 94760; 93005; 93458; 85379; 83880; 80061; 80053; 82550; 83690; 83735; 84443; 84484; 85025; 85610; 85730 ×2; 71046; G0378 ×3; C1887; C1769 ×2; C1894; J2250; J1644 ×3; J2001; Q9967

== ENCOUNTER → 2019-07-18 | Outpatient (CLI) | payer MEDICARE, BC ==
[2019-07-18 18:36] LABS: Chol/HDL Ratio 2.71; LDL Cholesterol,Calculated 60.8 mg/dL (0.0-131.0); VLDL Calculation 16.2 mg/dL (5.00-40.00)
[2019-07-18 18:37] LABS: African American GFR (CKD) 75.2 (60.0-200.0); Albumin 4.5 g/dL (3.80-4.90); Albumin/Globulin Ratio 2.81 (1.60-3.17); Anion Gap 8.3 mmol/L (4.00-12.00); BUN/Creat Ratio 13.64 Ratio (12.00-20.00); Calcium 9.6 mg/dL (8.7-10.3); Carbon Dioxide 27.7 mmol/L (21.6-31.8); Globulin 1.6 g/dL (1.6-3.3); Potassium 4.6 mmol/L (3.5-5.5); Total Bilirubin 0.7 mg/dL (0.2-1.2); Total Protein 6.1 g/dL (6.2-8.2)
[2019-07-18 20:10] LABS: Hemoglobin A1C 7.1 % (4.0-6.0)
== END | disposition home or self-care (01) ==
LOC: LABWHC1 11:18
PROVIDERS: ATTEND Internal Medicine Endocrinology, Diabetes & Metabolism
DX: E11.65 Type 2 diabetes mellitus with hyperglycemia (principal)
CPT/HCPCS: 36415; 80053; 80061; 82043; 82570; 83036; 84443